=== PATIENT | female | born 1995 | race Caucasian/White ===

== ENCOUNTER → 2017-03-13 | Outpatient (CLI) | payer OTHER ==
[~2017-03-13] MED LIST: AMOXICOT500 M1 PO; FERROUS SULFAT325 M2 PO; LABETALOL 100M100 MG PO; MOTRIN 400MG.400 MG PO; PERCOCET 5/3251 EACH PO; PRENATAL PLUS1 TA1 PO; PREVACID 30MG C30 M1 PO; PREVACID30 MG PO; PROZAC 20MG CAP20 MG PO; PROZAC20 MG PO
== END ==
LOC: LAB 11:09
DX: Z32.00 Encounter for pregnancy test, result unknown (principal)